=== PATIENT | male | born 1940 | race Caucasian/White ===

== ENCOUNTER 2025-02-26 14:44 | Outpatient (CLI) | payer MEDICARE, BC ==
[~2025-02-26 14:44] MED LIST: AMLO10TA13 PO; APIX5TAB3 PO; GEMF600T90 PO; HYDR25TA4 PO; LAN0.125T PO; LISI20TA28 PO; SERT-434 PO; SIMV-45 PO; [UNRECOGNIZED DRUG - CODE] PO
--- NOTE | 2025-02-27 22:15 | CONSULTATION ---
DATE OF CONSULTATION: 02/26/2025 DICTATING PHYSICIAN: Nayely Sy M.S., [facility] ADMINISTRATOR MODIFIED BARIUM SWALLOW STUDY REPORT REFERRING PHYSICIAN: Everardo Beauchamp NP HISTORY OF PRESENT ILLNESS: The patient is an 84-year-old male and consents to this evaluation. The patient's was present for results of evaluation. In history obtained from the patient and medical records, the patient reports symptoms of dysphagia including feeling as if food is sticking at the level of clavicle. He reports this has been occurring for about a year or so. He reports medical history of neck surgery about 7 years ago, diabetes, vertigo that he just finished physical therapy sessions for yesterday and a growth on inside of his mouth that was checked by a physician in the past. He has been advised to remove this growth, but has not done so at this time. CURRENT DIET: The patient does not consume caffeine. He does not utilize tobacco products or drink alcohol. He does not have chocolate. In terms of dairy products, he has a small amount of ice cream and cheese. The patient typically does not have breakfast, but if he were to have any, he would have eggs or toast. A typical lunch is leftovers from the night before, a [place] chip sandwich or a hamburger. He does not snack in the afternoon. Dinner may be chicken or fish with vegetables such as broccoli, cauliflower, zucchini, tacos with ground beef or meatloaf and is eaten between 6:00 and 6:30 p.m. He does not have dessert. He goes to bed between 9:00 and 9:30 p.m. MEDICATIONS: Sertraline 100 mg 1 tablet once daily orally, Ozempic Pen injection 0.25 or 0.5 mg inject subcutaneously under the skin every week, insulin Lispro QuickPen 100 unit/mL, inject 1-8 units subcutaneously under the skin per sliding scale as needed, melatonin 2 tablets once daily as needed, amiodarone 200 mg 1 tablet once daily orally, ezetimibe 10 mg 1 tablet once daily orally, furosemide 20 mg 1 tablet once daily orally, metoprolol succinate 50 mg ER 2 tablets once daily orally, pantoprazole 40 mg 1 tablet once daily orally, rosuvastatin 1 tablet once daily orally. PARAMETERS: The patient is seated in a lateral 90-degree view and administered the usual protocol of thin and nectar thick liquids, pureed and solid consistencies, as well as self-regulated boluses of thin liquids in the cup. RESULTS: The patient was easily able to transfer the bolus from the anterior to the posterior oral cavity. There did not appear to be any difficulty with strength or range of motion of the tongue in the oral phase of the swallow. In the pharyngeal stage of the swallow, there was mildly reduced tongue base retraction, which would result in a mild residue across the base of the tongue. Swallow initiation was within functional limits. Anterior movement of the posterior pharyngeal wall was observed. Elevation of hyothyroid complex was accomplished with full range of motion. There is a mild pharyngeal residue at the level of the vallecula. PES opening was within functional limits. In terms of airway safety, at no point was the patient noted to penetrate or aspirate on any of the bolus sizes or consistencies. It was noted in this lateral view that below the level of the UES that the esophagus began to narrow and it looked as if it was like a funnel where both liquid and solid boluses would reach this point of narrowing and take an extended period to filter through that narrowed spot of the esophagus. This prolonged transit through the narrowed point of the esophagus was present for all bolus sizes or consistencies and it was noted that the thicker the bolus took longer through that spot. ANTERIOR, POSTERIOR VIEW: In the AP plane, the bolus split symmetrically between the piriform sinuses. There was no proximal movement of the bolus was noted. Below that level of the esophageal narrowing that was observed in the lateral view, the bolus would propel through the esophagus in a timely manner. IMPRESSION: The patient demonstrates with what appears to be a moderate paraesophageal stage swallowing disorder, characterized by slow propulsion of the bolus through the esophagus at a point of narrowing. DIAGNOSES: R13.14 dysphagia, pharyngoesophageal phase, R05.9, cough. PATIENT'S EDUCATION: Immediately following modified barium swallow study, the patient and his were able to view the results. The patient was able to see how the current status of the swallowing mechanism decreases his ability to swallow normally. He was educated on a recommendation to take small bites and sips and to alternate his liquids and solids at this time as well as to chew his food thoroughly. It was recommended that he would also follow up with a GI doctor regarding the apparent narrowing of the esophagus observed in the lateral view. RECOMMENDATIONS: * It is recommended the patient remain on his regular texture thin liquid diet, but utilize safe swallowing strategies including alternating liquids and solids and small bites and sips. * It is recommended that the patient be referred for a GI consult regarding narrowing of the esophagus. LONG-TERM GOALS: The patient will maintain adequate hydration/nutrition with optimum safety and efficiency of swallow function on p.o. intake without overt signs and symptoms of aspiration for the highest possible diet level. FUNCTIONAL ORAL INTAKE: The FOIS was administered to establish and document a change in the functional eating activities of this patient over time. This is a 7-point scale with 1 indicating no oral intake and totally tube dependent and 7 indicating total oral intake with no restrictions. This patient received a 7 which indicates total oral intake with no restrictions. G-CODE: [id number]. Thank you very much for asking me to participate in the care of this kind patient. Should you have any questions regarding this evaluation or recommendations, please do not hesitate to contact me at [phone]. During this examination, 3.31 minutes of fluoroscopy time and 47.24 CAK mGy were utilized. Nayely Sy M.S., [facility] [employer] ADMINISTRATOR TID: [id number] RECEIPT: [id number] GURDEEP [facility]
== END 2025-02-26 23:59 | disposition home or self-care (01) ==
LOC: RAD 14:44
PROVIDERS: ATTEND Nurse Practitioner Family
DX: K22.2 Esophageal obstruction (principal); R13.14 Dysphagia, pharyngoesophageal phase; R05.9 Cough, unspecified
CPT/HCPCS: 74230